=== PATIENT | male | born 1960 | race African-American/Black ===

== ENCOUNTER → 2021-03-01 | Outpatient (CLI) | payer BC ==
[~2021-03-01] MED LIST: FLEXERIL PO; MEDROLDOSEPACK PO; NORCO 5-325 TA1 EACH PO
== END ==
LOC: RAD 08:32
PROVIDERS: ATTEND Pediatrics
DX: J44.9 Chronic obstructive pulmonary disease, unspecified (principal); R06.02 Shortness of breath

== ENCOUNTER → 2021-03-07 | Outpatient (CLI) | payer BC | LOC: CAT 09:46 | PROVIDERS: ATTEND Pediatrics | DX: R91.1 Solitary pulmonary nodule (principal) ==